=== PATIENT | female | born 1975 ===

== ENCOUNTER 2019-03-22 12:09 | Emergency (ER) | payer OTHER ==
--- NOTE | 2019-03-22 12:27 | Emergency Department Report ---
Blank Doc - Documentation Documentation: 43 y/o female presents to ED c/o of right lowr abdominal pain for 3 days. No f ever or diarrhea . Plan Labs and CT, UA
[2019-03-22 13:37] LABS: Basophils # (Auto) 0.1 K/mm3 (0.0-0.1); Basophils % (Auto) 1.1 % (0.0-1.8); Eosinophils # (Auto) 0.1 K/mm3 (0.0-0.4); Eosinophils % (Auto) 1.6 % (0.0-4.3); Hematocrit 28.4 % (30.3-42.9); Lymphocytes % (Auto) 35.3 % (13.4-35.0); Mean Corpuscular HGB Conc 32 % (30-34); Mean Corpuscular Volume 72 fl (79-97); Monocytes # (Auto) 0.4 K/mm3 (0.0-0.8); Monocytes % (Auto) 6.5 % (0.0-7.3); Platelet Count 270 K/mm3 (140-440); Red Blood Count 3.95 M/mm3 (3.65-5.03); Red Cell Distribution Width 19.8 % (13.2-15.2)
[2019-03-22 13:58] LABS: Alanine Aminotransferase 11 units/L (7-56); Albumin 4.2 g/dL (3.9-5); BUN/Creatinine Ratio 20; Blood Urea Nitrogen 8 mg/dL (7-17); Calcium 8.8 mg/dL (8.4-10.2); Hemolysis Index 5
[2019-03-22 14:03] LABS: Bilirubin,Direct < 0.2 mg/dL (0-0.2)
[2019-03-22] MEDS ORDERED: ZOFRAN IV ONE (15:54)
[2019-03-22] MEDS ORDERED: NACL 0.9% 1000 ML 1,000 ML IV ONE (15:54)
[2019-03-22] MEDS ORDERED: TORADOL IV ONE (15:54)
--- NOTE | 2019-03-22 16:32 | Emergency Department Report ---
ED Abdominal Pain HPI - General Chief Complaint: Abdominal Pain Stated Complaint: ABD PAIN Time Seen by Provider: 03/22/19 12:24 Source: patient, registration officer Mode of arrival: Ambulatory Limitations: Language Barrier - History of Present Illness Initial Comments: Patient is a 43-year-old female who presents to the emergency Department with complaints of right-sided abdominal pain that began 3 days ago. She has associated nausea and feeling of being bloated. She denies any vomiting, diarrhea, fever, urinary symptoms, vaginal discharge, vaginal irritation. She has a past surgical history of an appendectomy. She has a past medical history of colitis 3 years ago. She denies any allergies to medications. Severity scale (0 -10): 7 - Related Data Previous Rx's Medication Instructions Recorded Last Taken Type Dicyclomine [Bentyl] 10 mg PO QID PRN #20 capsule 03/22/19 Unknown Rx Docusate Sodium [Colace] 100 mg PO BID PRN #20 capsule 03/22/19 Unknown Rx Ferrous Sulfate [Ferrous Sulfate 324 mg PO DAILY #30 tablet. 03/22/19 Unknown Rx 324 MG] Ondansetron [Zofran Odt] 4 mg PO Q8HR PRN #10 tab.rapdis 03/22/19 Unknown Rx Polyethylene Glycol 3350 [Miralax] 7 gm PO DAILY PRN #1 powder 03/22/19 Unknown Rx Allergies Allergy/AdvReac Type Severity Reaction Status Date / Time No Known Allergies Allergy Unverified 03/22/19 12:11 ED Review of Systems ROS: Stated complaint: ABD PAIN Other details as noted in HPI Comment: All other systems reviewed and negative ED Past Medical Hx - Past Medical History Previous Medical History?: No - Surgical History Hx Appendectomy: Yes Additional Surgical History: C/S - Social History Smoking Status: Never Smoker Substance Use Type: Alcohol - Medications Home Medications: Home Medications Medication Instructions Recorded Confirmed Last Taken Type Dicyclomine [Bentyl] 10 mg PO QID PRN #20 capsule 03/22/19 Unknown Rx Docusate Sodium [Colace] 100 mg PO BID PRN #20 capsule 03/22/19 Unknown Rx Ferrous Sulfate [Ferrous Sulfate 324 mg PO DAILY #30 tablet. 03/22/19 Unknown Rx 324 MG] Ondansetron [Zofran Odt] 4 mg PO Q8HR PRN #10 tab.rapdis 03/22/19 Unknown Rx Polyethylene Glycol 3350 [Miralax] 7 gm PO DAILY PRN #1 powder 03/22/19 Unknown Rx ED Physical Exam - General Limitations: Language Barrier General appearance: alert, in no apparent distress - Head Head exam: Present: atraumatic, normocephalic - Eye Eye exam: Present: normal appearance, PERRL - ENT ENT exam: Present: mucous membranes moist - Respiratory Respiratory exam: Present: normal lung sounds bilaterally. Absent: respiratory distress, wheezes, rales, rhonchi, stridor, chest wall tenderness, accessory muscle use, decreased breath sounds, prolonged expiratory - Cardiovascular Cardiovascular Exam: Present: regular rate, normal rhythm, normal heart sounds. Absent: systolic murmur, diastolic murmur, rubs, gallop - GI/Abdominal GI/Abdominal exam: Present: soft, tenderness (generalized right sided TTP), normal bowel sounds. Absent: distended, guarding, rebound, rigid - Back Exam Back exam: Absent: CVA tenderness (R), CVA tenderness (L) - Neurological Exam Neurological exam: Present: alert, oriented X3 - Psychiatric Psychiatric exam: Present: normal affect, normal mood ED Course Vital Signs 03/22/19 03/22/19 03/22/19 12:25 16:24 18:13 Temperature 98.8 F Pulse Rate 67 70 Respiratory 18 18 18 Rate Blood Pressure 127/88 Blood Pressure 131/74 [Left] O2 Sat by Pulse 97 97 98 Oximetry ED Medical Decision Making - Lab Data Result diagrams: 03/22/19 13:11 03/22/19 13:11 Lab Results 03/22/19 03/22/19 03/22/19 Range/Units 13:11 13:11 16:02 WBC 5.6 (4.5-11.0) K/mm3 RBC 3.95 (3.65-5.03) M/mm3 Hgb 9.0 L (10.1-14.3) gm/dl Hct 28.4 L (30.3-42.9) % MCV 72 L (79-97) fl MCH 23 L (28-32) pg MCHC 32 (30-34) % RDW 19.8 H (13.2-15.2) % Plt Count 270 (140-440) K/mm3 Lymph % (Auto) 35.3 H (13.4-35.0) % Forrest % (Auto) 6.5 (0.0-7.3) % Eos % (Auto) 1.6 (0.0-4.3) % Baso % (Auto) 1.1 (0.0-1.8) % Lymph # 2.0 (1.2-5.4) K/mm3 Forrest # 0.4 (0.0-0.8) K/mm3 Eos # 0.1 (0.0-0.4) K/mm3 Baso # 0.1 (0.0-0.1) K/mm3 Seg Neutrophils % 55.5 (40.0-70.0) % Seg Neutrophils # 3.1 (1.8-7.7) K/mm3 Sodium 136 L (137-145) mmol/L Potassium 4.3 (3.6-5.0) mmol/L Chloride 100.5 (98-107) mmol/L Carbon Dioxide 24 (22-30) mmol/L Anion Gap 16 mmol/L BUN 8 (7-17) mg/dL Creatinine 0.4 L (0.7-1.2) mg/dL Estimated GFR > 60 ml/min BUN/Creatinine Ratio 20 % Glucose 103 H (65-100) mg/dL Calcium 8.8 (8.4-10.2) mg/dL Total Bilirubin 0.60 (0.1-1.2) mg/dL Direct Bilirubin < 0.2 (0-0.2) mg/dL Indirect Bilirubin 0.4 mg/dL AST 17 (5-40) units/L ALT 11 (7-56) units/L Alkaline Phosphatase 69 (35-129) units/L Total Protein 7.5 (6.3-8.2) g/dL Albumin 4.2 (3.9-5) g/dL Albumin/Globulin Ratio 1.3 % Lipase 14 (13-60) units/L Urine Color Yellow (Yellow) Urine Turbidity Slightly-cloudy (Clear) Urine pH 5.0 (5.0-7.0) Ur Specific [place] 1.021 (1.003-1.030) Urine Protein <15 mg/dl (Negative) mg/dL Urine Glucose (UA) Neg (Negative) mg/dL Urine Ketones Neg (Negative) mg/dL Urine Blood Neg (Negative) Urine Nitrite Neg (Negative) Urine Bilirubin Neg (Negative) Urine Urobilinogen < 2.0 (<2.0) mg/dL Ur Leukocyte Esterase Tr (Negative) Urine WBC (Auto) 3.0 (0.0-6.0) /HPF Urine RBC (Auto) 2.0 (0.0-6.0) /HPF U Epithel Cells (Auto) 12.0 (0-13.0) /HPF Urine Mucus 1+ /HPF - Radiology Data Radiology results: report reviewed PROCEDURE: CT ABDOMEN PELVIS W CON TECHNIQUE: Computerized axial tomography of the abdomen and pelvis was performed after the administration of IV iodinated nonionic contrast. CT DOSE LENGTH PRODUCT: 3414.9 mGycm HISTORY: Abdominal Pain COMPARISONS: None . FINDINGS: The liver, gallbladder, spleen, pancreas, adrenal glands and kidneys are normal. No evidence of bowel obstruction, appendicitis or diverticulitis. Approximately 1.8 x 1.0 cm left ovarian cyst is within physiologic range. The pelvic viscera are otherwise unremarkable. Trace free fluid in the pelvis. IMPRESSION: Trace free fluid in the pelvis can be physiologic. Otherwise unremarkable exam. This document is electronically signed by Julia Be MD., March 22 2019 05:49:39 PM ET Transcribed By: PAF Dictated By: JULIA BE MD Electronically Authenticated By: JULIA BE MD Signed Date/Time: 03/22/19 6098 - Medical Decision Making Patient is a 43-year-old female who presents to the emergency Department with complaints of right-sided abdominal pain that began 3 days ago. She has ass ociated nausea and feeling of being bloated. She denies any vomiting, diarrhea, fever, urinary symptoms, vaginal discharge, vaginal irritation. She has a past surgical history of an appendectomy. She has a past medical history of colitis 3 years ago. She denies any allergies to medications. labs with mild anemia otherwise normal. UA is normal. CT abd pelvic with retained stool, left ovarian cyst, physiologic pelvic fluid, otherwise no acute process. pt given sympomatic tx. discussed to please take all medication as prescribed. Please drink plenty of water and eat a high-fiber diet. Follow-up with your primary care doctor in next 2-3 days. Return to the emergency room for any new or worsening symptoms. all translation done by patients daughter for yi translation - Differential Diagnosis colitis, SBO, constipation, gallstones, cholecystitis, ovarian cyst Critical care attestation.: If time is entered above; I have spent that time in minutes in the direct care of this critically ill patient, excluding procedure time. ED Disposition Clinical Impression: Abdominal pain Qualifiers: Abdominal location: right lower quadrant Qualified Code(s): R10.31 - Right lower quadrant pain Constipation Qualifiers: Constipation type: unspecified constipation type Qualified Code(s): K59.00 - Constipation, unspecified Ovarian cyst Qualifiers: Laterality: left Qualified Code(s): N83.202 - Unspecified ovarian cyst, left side Anemia Qualifiers: Anemia type: unspecified type Qualified Code(s): D64.9 - Anemia, unspecified Disposition: TO HOME OR SELFCARE Is pt being admited?: No Does the pt Need Aspirin: No Condition: Stable Instructions: Ovarian Cyst (ED), Constipation (ED), High Fiber Diet (ED), Abdominal Pain (ED), Anemia (ED) Additional Instructions: Please take all medication as prescribed. Please drink plenty of water and eat a high-fiber diet. Follow-up with your primary care doctor in next 2-3 days. Return to the emergency room for any new or worsening symptoms. Prescriptions: Dicyclomine [Bentyl] 10 mg PO QID PRN #20 capsule PRN Reason: Spasms Docusate Sodium [Colace] 100 mg PO BID PRN #20 capsule PRN Reason: Constipation Ferrous Sulfate [Ferrous Sulfate 324 MG] 324 mg PO DAILY #30 tablet.dr Polyethylene Glycol 3350 [Miralax] 7 gm PO DAILY PRN #1 powder PRN Reason: Constipation Ondansetron [Zofran Odt] 4 mg PO Q8HR PRN #10 tab.rapdis PRN Reason: Nausea Referrals: MONSERRAT PRAJAPATI MD [Primary Care Provider] - 2-3 Days Time of Disposition: 18:06 Print Language: ALGERIAN
[2019-03-22 16:38] LABS: Bilirubin,Urine NEG (Negative); Blood,Urine NEG (Negative); Color,Urine Yellow (Yellow); Mucus,Urine 1+ /HPF; Protein,Urine <15 mg/dL mg/dL (Negative); Urobilinogen,Urine < 2.0 mg/dL (<2.0)
--- NOTE | 2019-03-22 17:51 | Cat Scan Report ---
PROCEDURE: CT ABDOMEN PELVIS W CON TECHNIQUE: Computerized axial tomography of the abdomen and pelvis was performed after the administr ation of IV iodinated nonionic contrast. CT DOSE LENGTH PRODUCT: 3414.9 mGycm HISTORY: Abdominal Pain COMPARISONS: None . FINDINGS: The liver, gallbladder, spleen, pancreas, adrenal glands and kidneys are normal. No evidence of bowel obstruction, appendicitis or diverticulitis. Approximately 1.8 x 1.0 cm left ovarian cyst is within physiologic range. The pelvic viscera are otherwise unremarkable. Trace free fluid in the pelvis. IMPRESSION: Trace free fluid in the pelvis can be physiologic. Otherwise unremarkable exam. This document is electronically signed by Delbert Farnsworth MD., March 22 2019 05:49:39 PM ET
[2019-03-22 18:31] VITALS: BP 131/74
== END 2019-03-22 18:31 | disposition home or self-care (01) ==
LOC: ED 12:09
DX: K59.00 Constipation, unspecified (principal); N83.202 Unspecified ovarian cyst, left side; D64.9 Anemia, unspecified; Z90.89 Acquired absence of other organs
CPT/HCPCS: 36415; 74177; 80048; 80076; 81001; 83690; 85025; 96361; 96374; 96375; 99284; J1885; J2405; J7030; Q9967